=== PATIENT | female | born 1995 | race African-American/Black ===

== ENCOUNTER 2017-09-16 02:54 | Emergency (ER) | payer MEDICAID ==
[~2017-09-16] VITALS: Ht 172.7 cm; Wt 91.0 kg
[2017-09-16] MEDS ORDERED: DIPHENHYDRAMINE 50MG/ML VIAL IV STA (03:13)
[2017-09-16] MEDS ORDERED: ONDANSETRON HCL 4MG/2ML VIAL IV STA ×2 (03:13→04:53)
[2017-09-16] MEDS ORDERED: DICYCLOMINE 10 MG/5 ML ORAL SYR PO STA (03:13)
[2017-09-16] MEDS ORDERED: SODIUM CHLORIDE 0.9% 1,000 ML IV ONE (03:13)
[2017-09-16] MEDS ORDERED: MAGNESIUM/ALUMINUM HYDROXIDE/SIMETHICONE 30ML UDC PO STA (03:13)
[2017-09-16 03:45] LABS: BASOPHILS % 0.3 % (0.0-2.0); EOSINOPHILS % 0.7 % (0.0-5.0); HEMATOCRIT. 33.8 % (36.0-48.0); HEMOGLOBIN. 11.6 g/dL (12.0-16.0); LYMPHOCYTES % 15.9 % (20.0-50.0); MEAN CORPUSCULAR HEMOGLOBIN 30.1 pg (28.0-32.0); MEAN CORPUSCULAR VOLUME 87.3 fL (81.0-99.0); MEAN PLATELET VOLUME 8.2 fl (7.4-10.4); NEUTROPHILS % 78.1 % (40.0-76.0); PLATELET 287 x1000/uL (130-400); RED BLOOD CELL COUNT 3.87 mill/uL (4.2-5.4); RED CELL DISTRIBUTION WIDTH 13.7 % (11.6-14.6)
[2017-09-16 03:51] LABS: CHLORIDE 103 mEq/L (98-107)
[2017-09-16 03:55] LABS: ETHANOL BLOOD < 10 mg/dL
[2017-09-16 04:15] LABS: B-HCG QUANTITATIVE 26493 mIU/mL (<3)
[2017-09-16 04:17] LABS: CLARITY URINE CLOUDY (CLEAR); COLOR URINE DARK YELLOW (YELLOW); KETONES URINE TRACE (NEGATIVE); LEUKOCYTE ESTERASE URINE 2+ (NEGATIVE); NITRITE URINE NEGATIVE (NEGATIVE); OCCULT BLOOD URINE NEGATIVE (NEGATIVE); PH URINE 6.5 (4.5-8.0); PROTEIN URINE 1+ (NEGATIVE); SPECIFIC GRAVITY URINE 1.028 (1.005-1.030)
[2017-09-16] MEDS ORDERED: CEFTRIAXONE 1 G PREMIX 50 ML IV NR (04:30)
[2017-09-16 05:45] VITALS: BP 109/51
== END 2017-09-16 06:18 | disposition home or self-care (01) ==
LOC: ER 02:54
DX: O99.612 Diseases of the digestive system complicating pregnancy, second trimester (principal); K80.70 Calculus of gallbladder and bile duct without cholecystitis without obstruction; K21.9 Gastro-esophageal reflux disease without esophagitis; O23.42 Unspecified infection of urinary tract in pregnancy, second trimester; O26.892 Other specified pregnancy related conditions, second trimester; O26.612 Liver and biliary tract disorders in pregnancy, second trimester; Z3A.19 19 weeks gestation of pregnancy
CPT/HCPCS: 36415; 76705; 76815; 80053; 81003; 81025; 83605; 83690; 84702; 85025; 86850; 86900; 86901; 87086; 96365; 96375; 96376; 99285; G0482; J0696; J1200; J2405; J7030; Z7610

== ENCOUNTER 2018-08-15 16:55 | Emergency (ER) | payer MEDICAID, OTHER | END 2018-08-15 17:20 | disposition left against medical advice (07) | LOC: ER 17:11 | DX: R68.89 Other general symptoms and signs (principal); Z53.21 Procedure and treatment not carried out due to patient leaving prior to being seen by health care provider ==